=== PATIENT | female | born 1995 | race Caucasian/White ===

== ENCOUNTER 2018-09-03 16:19 | Observation (INO) | payer BC, MEDICARE ==
[~2018-09-03] VITALS: Ht 157.5 cm; Wt 88.9 kg
[2018-09-03] MEDS ORDERED: PREN1TAB80 PO (17:22)
== END 2018-09-03 17:55 | disposition home or self-care (01) ==
LOC: UNDOADMOB 16:19 → 4S 16:19 → UNDODISOB 17:55
PROVIDERS: ADMIT Obstetrics & Gynecology; ATTEND Obstetrics & Gynecology
DX: Z34.83 Encounter for supervision of other normal pregnancy, third trimester (principal); Z3A.35 35 weeks gestation of pregnancy

== ENCOUNTER 2018-09-13 11:37 | Observation (INO) | payer BC, MEDICARE ==
[~2018-09-13] VITALS: Ht 157.5 cm; Wt 86.2 kg
[~2018-09-13 11:37] MED LIST: PREN1TAB80 PO
[2018-09-14 14:29] VITALS: BP 109/70
== END 2018-09-14 12:50 | disposition home or self-care (01) ==
LOC: 4S 09-14 10:52
PROVIDERS: ADMIT Obstetrics & Gynecology; ATTEND Obstetrics & Gynecology
DX: Z34.83 Encounter for supervision of other normal pregnancy, third trimester (principal); Z3A.36 36 weeks gestation of pregnancy
CPT/HCPCS: 76805; G0378

== ENCOUNTER 2018-09-21 09:50 | Observation (INO) | payer MEDICARE ==
[~2018-09-21] VITALS: Ht 157.5 cm; Wt 87.1 kg
== END 2018-09-21 12:25 | disposition home or self-care (01) ==
LOC: 4S 09:50
PROVIDERS: ADMIT Obstetrics & Gynecology; ATTEND Obstetrics & Gynecology
DX: Z34.83 Encounter for supervision of other normal pregnancy, third trimester (principal); Z3A.37 37 weeks gestation of pregnancy
CPT/HCPCS: 76805; G0378

== ENCOUNTER 2018-09-27 09:36 | Observation (INO) | payer MEDICARE ==
[~2018-09-27] VITALS: Ht 157.5 cm; Wt 86.2 kg
== END 2018-09-27 12:05 | disposition home or self-care (01) ==
LOC: 4S 09:36
PROVIDERS: ADMIT Obstetrics & Gynecology; ATTEND Obstetrics & Gynecology
DX: O26.893 Other specified pregnancy related conditions, third trimester (principal); R10.30 Lower abdominal pain, unspecified; Z3A.38 38 weeks gestation of pregnancy
CPT/HCPCS: 76805; 81002; G0378

== ENCOUNTER 2018-10-01 09:15 | Observation (INO) | payer MEDICARE ==
[~2018-10-01] VITALS: Ht 157.5 cm; Wt 88.9 kg
== END 2018-10-01 10:55 | disposition home or self-care (01) ==
LOC: 4S 09:15
PROVIDERS: ADMIT Obstetrics & Gynecology; ATTEND Obstetrics & Gynecology
DX: O26.893 Other specified pregnancy related conditions, third trimester (principal); R10.30 Lower abdominal pain, unspecified; Z3A.39 39 weeks gestation of pregnancy
CPT/HCPCS: 76805; G0378

== ENCOUNTER 2018-10-04 09:03 | Observation (INO) | payer MEDICARE ==
[~2018-10-04] VITALS: Ht 157.5 cm; Wt 88.0 kg
[2018-10-04 09:17] VITALS: BP 111/70
[2018-10-04] MEDS ORDERED: PNV1TABL54 PO (09:17)
== END 2018-10-04 10:15 | disposition home or self-care (01) ==
LOC: 4S 09:03
PROVIDERS: ADMIT Obstetrics & Gynecology; ATTEND Obstetrics & Gynecology
DX: Z34.83 Encounter for supervision of other normal pregnancy, third trimester (principal); Z3A.39 39 weeks gestation of pregnancy
CPT/HCPCS: 76805; 81002; G0378

== ENCOUNTER 2018-10-06 08:20 | Observation (INO) | payer MEDICARE ==
[~2018-10-06] VITALS: Ht 160 cm; Wt 87.1 kg
[~2018-10-06 08:20] MED LIST changes: +PNV1TABL54 PO
[2018-10-07] MEDS ORDERED: PREN1TAB80 PO (12:08)
== END 2018-10-06 14:30 | disposition home or self-care (01) ==
LOC: 4S 08:20
PROVIDERS: ADMIT Obstetrics & Gynecology; ATTEND Obstetrics & Gynecology
DX: O62.9 Abnormality of forces of labor, unspecified (principal); Z3A.39 39 weeks gestation of pregnancy

== ENCOUNTER 2018-10-07 11:52 | Inpatient (IN) | payer MEDICARE ==
[~2018-10-07] VITALS: Ht 160 cm; Wt 88.0 kg
[~2018-10-07 11:52] MED LIST changes: +CITRIC ACID/SODIUM CITRATE 30 ML SOLUTION UDCUP PO PRN; +FentaNYL CITRATE-PF 100 MCG/2 ML VIAL IVP PRN; +LIDOCAINE/PF 1% 30 ML VIAL INJ PRN; +METOCLOPRAMIDE HCL 5 MG/ML 2 ML VIAL IVP PRN; +OXYTOCIN 30 UNITS/LACT RINGERS 500 ML IV ONE; +RINGERS SOLUTION,LACTATED 1,000 ML IV PRN
[2018-10-07 12:07] LABS: BASOPHILS % (AUTO) 0.8 % (0.0-2.0); EOSINOPHILS % (AUTO) 2.3 % (1.0-6.0); HEMATOCRIT 33.8 % (36-46); HEMOGLOBIN 10.7 g/dL (12.0-16.0); LYMPHOCYTES # (AUTO) 1.4 K/uL (1.0-4.8); LYMPHOCYTES % (AUTO) 17.4 % (22.0-44.0); MEAN CORPUSCULAR HEMOGLOBIN 25.6 pg (26.0-34.0); MEAN CORPUSCULAR HGB CONC 31.7 G/dL (31.0-37.0); MEAN CORPUSCULAR VOLUME 81 fL (80-100); MONOCYTES # (AUTO) 0.4 K/uL (0.1-1.0); MONOCYTES % (AUTO) 4.5 % (2.0-9.0); NEUTROPHILS # (AUTO) 6.1 K/uL (1.8-7.7); PLATELET COUNT (AUTO) 277 K/uL (150-450); RED BLOOD CELL COUNT(AUTO) 4.18 MIL/uL (4.00-5.20); RED CELL DISTRIBUTION WIDTH 17.2 % (11.5-14.5)
[2018-10-07] MEDS ORDERED: PREN1TAB80 PO (12:08)
[2018-10-07 12:12] VITALS: BP 117/71
[2018-10-07] MEDS: RINGERS SOLUTION,LACTATED 1,000 ML IV SCH ×2 (12:28→16:56)
[2018-10-07] MEDS ORDERED: OXYTOCIN 30 UNITS/LACT RINGERS 500 ML IV PRN (13:00)
[2018-10-07] MEDS ORDERED: ROPIVACAINE HCL/PF 0.2% 100 ML ED ONE (13:22)
[2018-10-07] MEDS ORDERED: LIDOCAINE/PF 2% 5 ML VIAL ONE (13:22)
[2018-10-07] MEDS ORDERED: DiphenhydrAMINE HCL 50 MG/ML VIAL IVP PRN (14:00)
[2018-10-07] MEDS ORDERED: ROPIVACAINE HCL/PF 0.2% 100 ML ED PRN (14:00)
[2018-10-07] MEDS ORDERED: ONDANSETRON HCL 4 MG/2 ML VIAL IVP PRN (14:00)
[2018-10-07] MEDS ORDERED: NALBUPHINE HCL 10 MG/ML VIAL IVP PRN (14:00)
[2018-10-07] MEDS ORDERED: OXYGEN THERAPY IH SCH (20:00)
[2018-10-07] MEDS ORDERED: LANOLIN 7 GM OINTMENT TP PRN (20:45)
[2018-10-07] MEDS ORDERED: GLYCERIN/WITCH HAZEL LEAF 40 PADS JAR TP PRN (20:45)
[2018-10-07] MEDS ORDERED: BENZOCAINE 20%/MENTHOL 56 GM SPRAY CANISTER TP PRN (20:45)
[2018-10-07] MEDS ORDERED: ACETAMINOPHEN/CODEINE 300-30 MG TABLET PO PRN ×2 (20:45)
[2018-10-07] MEDS: IBUPROFEN 600 MG TABLET PO PRN (22:49)
[2018-10-07] MEDS: SENNA/DOCUSATE SODIUM 8.6-50 MG TABLET PO SCH (22:49)
[2018-10-08] MEDS: IBUPROFEN 600 MG TABLET PO PRN ×2 (05:22→15:11)
[2018-10-08 06:18] LABS: BASOPHILS % (AUTO) 0.4 % (0.0-2.0); EOSINOPHILS % (AUTO) 1.6 % (1.0-6.0); HEMATOCRIT 28.6 % (36-46); HEMOGLOBIN 9.3 g/dL (12.0-16.0); LYMPHOCYTES % (AUTO) 18.6 % (22.0-44.0); MEAN CORPUSCULAR HEMOGLOBIN 25.9 pg (26.0-34.0); MEAN CORPUSCULAR HGB CONC 32.6 G/dL (31.0-37.0); MEAN CORPUSCULAR VOLUME 80 fL (80-100); MONOCYTES # (AUTO) 0.6 K/uL (0.1-1.0); MONOCYTES % (AUTO) 5.7 % (2.0-9.0); NEUTROPHILS # (AUTO) 7.8 K/uL (1.8-7.7); NEUTROPHILS % (AUTO) 73.7 % (40.0-70.0); PLATELET COUNT (AUTO)-OB 221 K/uL (150-450); RED CELL DISTRIBUTION WIDTH 17.4 % (11.5-14.5)
[2018-10-08] MEDS: SENNA/DOCUSATE SODIUM 8.6-50 MG TABLET PO SCH (15:11)
[2018-10-08] MEDS ORDERED: IBUP-2070 PO (19:07)
== END 2018-10-08 20:12 | disposition home or self-care (01) | DRG 807 ==
LOC: OBSVTOIN 11:52 → 4S 11:52
PROVIDERS: ADMIT Obstetrics & Gynecology; ATTEND Obstetrics & Gynecology
PROC: 10E0XZZ Delivery of Products of Conception, External Approach (ICD-10-PCS; principal; 2018-10-07)
PROC: 0KQM0ZZ Repair Perineum Muscle, Open Approach (ICD-10-PCS; 2018-10-07)
PROC: 3E033VJ Introduction of Other Hormone into Peripheral Vein, Percutaneous Approach (ICD-10-PCS; 2018-10-07)
PROC: 3E0R3BZ Introduction of Anesthetic Agent into Spinal Canal, Percutaneous Approach (ICD-10-PCS; 2018-10-07)
PROC: 00HU33Z Insertion of Infusion Device into Spinal Canal, Percutaneous Approach (ICD-10-PCS; 2018-10-07)
DX: O77.0 Labor and delivery complicated by meconium in amniotic fluid (principal); Z37.0 Single live birth; O70.1 Second degree perineal laceration during delivery; Z3A.39 39 weeks gestation of pregnancy
CPT/HCPCS: 86850; 86900; 86901; 90686; J2590; J2795; J3010; J3490; J7120